=== PATIENT | male | born 1985 | race African-American/Black ===

== ENCOUNTER 2021-08-15 20:39 | Inpatient (IN) | payer OTHER, SELFPAY ==
[2021-08-15 20:40] VITALS: BP 142/84; PULSE 137; RESP 14; TEMP 39.6; O2SAT 97; BMI 20.7
--- NOTE | 2021-08-15 20:48 | CT_ITS ---
STUDY: CT BRAIN WITHOUT CONTRAST REASON FOR EXAM: Male, 36 years old. seizure RADIATION DOSAGE (If Supplied By Facility): CTDIvol = ( 44.99 ) mGy, DLP = ( 849.54 ) mGycm TECHNIQUE: Transaxial CT imaging of the brain was performed without administration of intravenous contrast material. Individualized dose optimization techniques were used for this CT. COMPARISON: No relevant priors. FINDINGS: Normal soft tissue structures. Normal calvarium. Air-fluid level left maxillary sinus. Normal size ventricles and extra-axial spaces for the patient''s age. Normal white matter tracts of the cerebral hemispheres. Normal basal ganglia and thalami. Normal brainstem. Normal cerebellum. There is no intracranial hemorrhage. There are no findings of an acute ischemic infarction. IMPRESSION: Left maxillary sinusitis otherwise Normal unenhanced CT scan of the brain. Electronically Signed: Maverick Rush MD at 22:25 EST , Service support , CT/Brain/Head without Contrast
--- NOTE | 2021-08-15 20:48 | RAD_ITS ---
STUDY: X-RAY CHEST REASON FOR EXAM: Male, 36 years old. cough TECHNIQUE: Single frontal view of the chest. COMPARISON: None. FINDINGS: Infrahilar infiltrate on the right. There is no demonstrated pleural abnormality. Normal size heart. Normal mediastinum and corby. Normal visualized pulmonary arteries. Normal visualized aortic arch and descending thoracic aorta. Normal visualized thoracic spine. Normal visualized ribs, clavicles, and shoulders. There is no demonstrated abnormality of the visualized soft tissue structures of the upper abdomen. RAD/Chest 1 View (Portable) IMPRESSION: Right lower lobe infiltrate Electronically Signed: Maverick Rush MD at 23:48 EST , Service support ,
--- NOTE | 2021-08-15 20:51 | EX.ED.DYSGE1 ---
HPI History of Present Illness Chief Complaint: Seizure Informant: patient and EMS Onset/Context/Timing Onset: Today Narrative Narrative: Patient brought in by EMS secondary to seizure. Patient states that he tested positive for Covid 2 weeks ago. He was only tested because he was exposed to a coworker with the illness. He has had no symptoms the last 2 weeks. Tonight he was outside working on his home when he started to feel ill. He developed a fever and went inside and laid down. He states the next thing he knew the squad was there picking him up stating that he had a seizure. Patient complains of generalized body aches and headache at this time. Only medication is Lexapro. Patient states his dose did increase from 10 mg to 20 mg about 2 weeks ago. [facility] Medical History Depression Home Medications escitalopram oxalate [Lexapro] 20 mg PO DAILY 08/15/21 [History Last Taken Unknown] Allergy/AdvReac Type Severity Reaction Status Date / Time No Known Allergies Allergy Verified 08/15/21 20:44 Social History Smoking Status: Current every day smoker tobacco type: cigarettes ROS ROS ED Constitutional Constitutional ED: Reports chills and fever(s) Eyes Eyes: Denies change in vision ENT ENT ED: Denies sore throat Cardiovascular Cardiovascular: Denies chest pain Respiratory/Chest Respiratory/Chest: Denies cough or dyspnea Gastrointestinal Gastrointestinal: Denies abdominal pain, diarrhea, nausea or vomiting Genitourinary Genitourinary ED: Denies dysuria Musculoskeletal Musculoskeletal: Reports myalgias; Denies back pain Integumentary Denies rash Neurologic Neurologic: Reports headache(s); Denies weakness Allergic/Immunologic Allergic/Immunologic ED: Denies urticaria EXAM Physical Exam Const Vital Signs: 08/15/21 20:40 08/15/21 21:40 08/15/21 22:40 Temperature 103.2 F H 102.8 F H 103 F H Temperature Source Oral Oral Oral Pulse Rate 137 H 116 H 112 H Respiratory Rate 14 16 16 Blood Pressure 142/84 H 116/61 101/57 L Blood Pressure Mean 103 79 71 Pulse Ox 97 94 91 Oxygen Delivery Method Room Air Room Air Room Air Positive well nourished and well developed General Appearance ED: well developed HEENT Reports moist mucous membranes Eyes PERRL and EOMs intact bilaterally Neck supple Neck Narrative: No meningismus. Chest Wall inspection of chest normal and palpation of chest normal Resp normal respiratory effort and clear to auscultation bilaterally Cardio Rate: tachycardic GI non-tender Palpation: soft Extremity normal to inspection Neuro oriented x3 Neuro Narrative: No focal neurologic deficits. Sensorium / Orientation: alert Psych mental status grossly normal Skin no rashes or lesions noted MDM MDM MDM Narrative Medical decision making narrative: Lab work, head CT, Covid test obtained. Patient given Tylenol for fever along with Zofran for nausea. Lab Data Attestation: I reviewed the patient's lab results. Labs: Laboratory Results - last 24 hr 08/15/21 08/15/21 08/15/21 20:50 20:50 21:00 WBC 15.0 H RBC 4.59 L Hgb 14.5 Hct 43.5 MCV 94.8 H MCH 31.6 MCHC 33.3 RDW Std Deviation 44.7 H RDW Coeff of Chandler 13.1 Plt Count 253 MPV 10.7 Immature Gran % (Auto) 0.600 Neut % (Auto) 85.5 H Lymph % (Auto) 7.5 L [place] % (Auto) 5.6 Eos % (Auto) 0.6 Baso % (Auto) 0.2 Absolute Neuts (auto) 12.9 H Absolute Lymphs (auto) 1.12 Nucleated RBC % 0 Sodium Cancelled Potassium Cancelled Chloride Cancelled Carbon Dioxide Cancelled Anion Gap Cancelled BUN Cancelled Creatinine Cancelled Estim Creat Clear Calc Cancelled Est GFR (MDRD) Af Amer Cancelled Est GFR (MDRD) Non-Af Cancelled BUN/Creatinine Ratio Cancelled Glucose Cancelled Lactic Acid 1.8 Calcium Cancelled Total Bilirubin Cancelled Direct Bilirubin Cancelled AST Cancelled ALT Cancelled Alkaline Phosphatase Cancelled Total Protein Cancelled Albumin Cancelled Globulin Cancelled 08/15/21 21:52 WBC RBC Hgb Hct MCV MCH MCHC RDW Std Deviation RDW Coeff of Chandler Plt Count MPV Immature Gran % (Auto) Neut % (Auto) Lymph % (Auto) [place] % (Auto) Eos % (Auto) Baso % (Auto) Absolute Neuts (auto) Absolute Lymphs (auto) Nucleated RBC % Sodium 142 Potassium 3.2 L Chloride 110 H Carbon Dioxide 26.0 Anion Gap 6 BUN 11 Creatinine 0.94 Estim Creat Clear Calc 102.90 Est GFR (MDRD) Af Amer 118 Est GFR (MDRD) Non-Af 97 BUN/Creatinine Ratio 11.7 Glucose 102 Lactic Acid Calcium 8.5 Total Bilirubin 0.20 Direct Bilirubin 0.10 AST 27 ALT 29 Alkaline Phosphatase 91 Total Protein 7.0 Albumin 3.6 Globulin 3.4 Radiography Diagnostic Testing: Clinical Impression(s) from Imaging Studies Brain CT 08/15/21 20:48 IMPRESSION: Left maxillary sinusitis otherwise Normal unenhanced CT scan of the brain. Treatment and Re-Evaluation Comments:: Rapid Covid test negative. Covid PCR sent. After Tylenol patient's fever remains at 102.8. He is given ibuprofen. Nursing staff states patient was complaining of some shortness of breath. His O2 sat was 91 to 92%. He was put on oxygen for comfort. On repeat evaluation at this time he is in no acute distress. He has no meningismus. He does report mild improvement in his headache but still complains of body aches. I did review the EMS note. They report noticing 2 episodes of convulsions on scene. First set of vital signs obtained at 20:26 included a GCS score of 7. Next check his GCS was 15. They documented the patient became alert and started speaking as they were moving him onto the cot. At this time I will speak with hospitalist regarding observation overnight. He will need temperature control wean from oxygen, and probable SOC consult tomorrow. Discharge Plan Triage Chief Complaint: Seizure ED Provider: Henna Herrera Dx/Rx/DC Orders Clinical Impression: Seizure, Fever Prescriptions: No Action escitalopram oxalate [Lexapro] 20 mg Tablet 20 mg PO DAILY RF: 0 Primary Care Provider: Care Physician,No Primary Referrals: Care Physician,No Primary [Primary Care Provider] - Disposition Disposition: [facility]
[2021-08-15 21:00] LABS: Absolute Lymphocyte Count 1.12 X10^3/uL (0.83-4.51); Absolute Neutrophil Count 12.9 X10^3/uL (2.0-7.7); Basophil# 0.03 X10^3/uL; Basophil% 0.2 % (0-1); Eosinophil# 0.09 X10^3/uL; Eosinophils% 0.6 % (0-5); Hematocrit 43.5 % (40-54); Hemoglobin 14.5 g/dL (13.0-16.5); Lymphocyte # 1.12 X10^3/ul (0.83-4.51); Lymphocyte % 7.5 % (19-41); Mean Corp Hgb Conc 33.3 g/dL (32-36); Mean Corpuscular Hgb 31.6 pg (27.0-32.0); Mean Corpuscular Volume 94.8 fL (80-94); Mean Platelet Vol. 10.7 fl (6.2-12.0); Monocyte# 0.84 X10^3/uL; Monocyte% 5.6 % (0-10); NRBC Flagged by Analyzer 0 % (0-5); Neutrophil # 12.85 X10^3/uL (2.7-7.7); Neutrophil % 85.5 % (47-70); Platelet Count 253 K/mm3 (150-450); RBC Distribution Width CV 13.1 % (11.6-14.6); RBC Distribution Width SD 44.7 fl (35.1-43.9); Red Blood Count 4.59 M/mm3 (4.6-6.2)
[2021-08-15 21:36] LABS: Lactic Acid 1.8 mmol/L (0.4-1.9)
[2021-08-15 21:40] VITALS: BP 116/61; PULSE 116; RESP 16; TEMP 39.3; O2SAT 94
[2021-08-15] MEDS: Ondansetron 4 MG/2 ML Vial IV (21:48)
[2021-08-15] MEDS: Acetaminophen 500 MG Tablet 1000 MG PO (21:50)
[2021-08-15 22:21] LABS: AST(SGOT) 27 U/L (15-37); Alanine Aminotransfer ALT/SGPT 29 U/L (16-61); Albumin, Serum 3.6 g/dL (3.2-5.0); Alkaline Phosphatase 91 U/L (45-117); Anion Gap 6 (5-15); BUN 11 mg/dL (7-18); BUN/Creat Ratio 11.7 RATIO (10-20); Calcium,Total 8.5 mg/dL (8.5-10.1); Chloride 110 mmol/L (98-107); Creatinine, Serum 0.94 mg/dL (0.70-1.30); EST Glomerular Filtration Rate 97 mL/min (>60); Est Glom Filt Rate - Afr Amer 118 mL/min (>60); Globulin 3.4 g/dL (2.2-4.2); Glucose 102 mg/dL (74-106); Potassium 3.2 mmol/L (3.5-5.1); Sodium Level 142 mmol/L (136-145)
[2021-08-15 22:40] VITALS: BP 101/57; PULSE 112; RESP 16; TEMP 39.4; O2SAT 91
[2021-08-15] MEDS: Ibuprofen 600 MG Tablet PO (23:20)
[2021-08-15 23:40] VITALS: BP 117/71; PULSE 106; RESP 18; TEMP 38.4; O2SAT 96
[2021-08-16] VITALS (11 sets, daily range): BP systolic 106–149; BP diastolic 63–88; PULSE 70–106; RESP 16–19; TEMP 36.6–38.4; O2SAT 96–99; BMI 19.5
--- NOTE | 2021-08-16 00:19 | NURSING ---
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
--- NOTE | 2021-08-16 00:40 | HP.PCM_ITS ---
HPI - General HPI Narrative TIMMY BOB, is a 36 M who presents to the emergency room after experiencing a seizure at home. Patient has significant past medical history of testing positive for COVID-19 virus 2 weeks ago after being exposed by a coworker. Patient did not have any symptoms of Covid including shortness of breath for the past 2 weeks until now. He has developed a fever this evening and states he was outside working on something when he felt sick and became nauseous and went inside to lay down and that the last thing he remembers prior to having a seizure for which she was transported to the hospital. Further history reveals patient is a [employer] who was discharged in 2011, is with his significant other and has 5 children under the age of 8 and according to his spouse has been working very hard on the house recently. He has a history of heavy alcohol consumption since discharge from the [facility] but states he has recently been trying to reduce his consumption and thinks he did not drink any at all yes terday and had 2 tall boys today. [facility] and was placed on Lexapro 2 months ago and was increased to a dose of 20 mg 2 weeks ago. He has no prior history of seizure disorder or head trauma. Patient will be admitted for observation to progressive care unit. [facility] Medical History (Updated 08/16/21 @ 00:[address] Delonte Lehman MD) Depression Home Medications escitalopram oxalate [Lexapro] 20 mg PO DAILY 08/15/21 [History Last Taken Unknown] Allergy/AdvReac Type Severity Reaction Status Date / Time No Known Allergies Allergy Verified 08/15/21 20:44 Social History Smoking Status: Current every day smoker tobacco type: cigarettes ROS Constitutional Constitutional: Reports chills and fever(s) Eyes Eyes: Reports blurry vision ENT HEENT: Denies abnormal hearing Cardiovascular Cardiovascular: Denies chest pain Respiratory/Chest Respiratory/Chest: Denies cough or shortness of breath at rest Gastrointestinal Gastrointestinal: Denies abdominal pain Genitourinary Genitourinary: Denies dysuria Musculoskeletal Musculoskeletal: Reports stiffness Integumentary Integumentary: Denies dry skin Neurologic Neurologic: Denies abnormal gait or abnormal speech Psychiatric Psychiatric: Denies anxiety Vital Signs Vital Signs Vital Signs: 08/15/21 20:40 08/15/21 21:40 08/15/21 22:40 Temperature 103.2 F H 102.8 F H 103 F H Temperature Source Oral Oral Oral Pulse Rate 137 H 116 H 112 H Respiratory Rate 14 16 16 Blood Pressure 142/84 H 116/61 101/57 L Blood Pressure Mean 103 79 71 Pulse Ox 97 94 91 Oxygen Delivery Method Room Air Room Air Room Air Oxygen Flow Rate (L/min) 08/15/21 23:40 08/16/21 00:07 Temperature 101.2 F H 101.2 F H Temperature Source Oral Oral Pulse Rate 106 H 106 H Respiratory Rate 18 18 Blood Pressure 117/71 117/71 Blood Pressure Mean 86 86 Pulse Ox 96 96 Oxygen Delivery Method Nasal Cannula Nasal Cannula Oxygen Flow Rate (L/min) 2 2 Weight Weight: 144 lb 13.499 oz Body Mass Index (BMI) 20.7 Physical Exam Const alert, oriented x3 and no apparent distress General Appearance: cooperative HEENT normocephalic and head/scalp atraumatic Eyes PERRL and EOMs intact bilaterally Neck supple Lymph Lymphatic: no lymphadenopathy noted Resp normal respiratory effort, normal air movement and clear to auscultation bilaterally Cardio regular rate, regular rhythm, S1 normal heart sound and S2 normal heart sound GI normal to inspection, nondistended, normoactive bowel sounds Extremity no clubbing, cyanosis or edema Skin General Skin Exam: turgor normal Neuro CN's II-XII intact bilaterally Psych thought process normal, cooperative and affect normal Appearance: appropriate Results Lab / Micro Data Result Diagrams: 08/15/21 20:50 08/15/21 21:52 Labs: Laboratory Results - last 24 hr 08/15/21 20:50: WBC 15.0 H, RBC 4.59 L, Hgb 14.5, Hct 43.5, MCV 94.8 H, MCH 31.6, MCHC 33.3, RDW Std Deviation 44.7 H, RDW Coeff of Chandler 13.1, Plt Count 253, MPV 10.7, Immature Gran % (Auto) 0.600, Neut % (Auto) 85.5 H, Lymph % (Auto) 7.5 L, [place] % (Auto) 5.6, Eos % (Auto) 0.6, Baso % (Auto) 0.2, Absolute Neuts (auto) 12.9 H, Absolute Lymphs (auto) 1.12, Nucleated RBC % 0 08/15/21 20:50: Sodium Cancelled, Potassium Cancelled, Chloride Cancelled, Carbon Dioxide Cancelled, Anion Gap Cancelled, BUN Cancelled, Creatinine Cancelled, Estim Creat Clear Calc Cancelled, Est GFR (MDRD) Af Amer Cancelled, Est GFR (MDRD) Non-Af Cancelled, BUN/Creatinine Ratio Cancelled, Glucose Cancelled, Calcium Cancelled, Total Bilirubin Cancelled, Direct Bilirubin Cancelled, AST Cancelled, ALT Cancelled, Alkaline Phosphatase Cancelled, Total Protein Cancelled, Albumin Cancelled, Globulin Cancelled 08/15/21 21:00: Lactic Acid 1.8 08/15/21 21:52: Sodium 142, Potassium 3.2 L, Chloride 110 H, Carbon Dioxide 26.0, Anion Gap 6, BUN 11, Creatinine 0.94, Estim Creat Clear Calc 102.90, Est GFR (MDRD) Af Amer 118, Est GFR (MDRD) Non-Af 97, BUN/Creatinine Ratio 11.7, Glucose 102, Calcium 8.5, Total Bilirubin 0.20, Direct Bilirubin 0.10, AST 27, ALT 29, Alkaline Phosphatase 91, Total Protein 7.0, Albumin 3.6, Globulin 3.4 Micro: Microbiology 08/15/21 20:52 Nasal Secretion SARS-CoV-2 Antigen (Rapid) - Final Radiology Impression Brain CT 08/15/21 20:48 Chest X-Ray 08/15/21 20:48 IMPRESSION: Right lower lobe infiltrate Electronically Signed: Maverick Rush MD at 23:48 EST , Service support , Assessment & Plan Assessment/Plan (1) Seizure: (2) Fever: (3) COVID: (4) Depression: PLAN: 1. New onset seizure possibly secondary to recent COVID-19 infection, alcohol cessation or change in depression medication?admit patient for observation to progressive care unit, neuro checks every 4 hours 2. COVID-19 virus infection?patient tested +2 weeks ago however does currently have a fever and will be placed in isolation for that reason, patient denies shortness of breath at this time and will monitor and use oxygen as needed 3. Depression?continue Lexapro per routine 4. DVT prophylaxis?SCDs as patient will most likely be ambulatory 5. History of alcohol consumption we will add thiamine and folic acid consider Ativan as needed if patient shows any agitation Charges/Coding Visit Charges OBSV E&M: 21917 Initial observation care L2
[2021-08-16] MEDS: Potassium Chloride Oral Tablet 20 MEQ 40 MEQ PO (01:05)
--- NOTE | 2021-08-16 02:33 | PCS.PANDOC ---
PANDEMIC DOCUMENTATION INITIATED: Date: 04/04/2021 Time: 190
[2021-08-16 08:04] LABS: Basophil# 0.07 X10^3/uL; Basophil% 0.3 % (0-1); Eosinophil# 0.06 X10^3/uL; Eosinophils% 0.2 % (0-5); Hematocrit 39.8 % (40-54); Hemoglobin 13.7 g/dL (13.0-16.5); Lymphocyte % 5.9 % (19-41); Mean Corp Hgb Conc 34.4 g/dL (32-36); Mean Platelet Vol. 10.3 fl (6.2-12.0); Monocyte# 2.49 X10^3/uL; Monocyte% 9.8 % (0-10); NRBC Flagged by Analyzer 0 % (0-5); Neutrophil % 82.9 % (47-70); POSITIVE DIFFERENTIAL YES; POSITIVE MORPHOLOGY YES; Platelet Count 220 K/mm3 (150-450); RBC Distribution Width CV 12.9 % (11.6-14.6); RBC Distribution Width SD 43.8 fl (35.1-43.9); Red Blood Count 4.28 M/mm3 (4.6-6.2); White Blood Count 25.4 K/mm3 (4.4-11.0)
[2021-08-16 08:07] LABS: Differential Indicated SCAN CRITERIA MET
[2021-08-16] MEDS: Thiamine Hydrochloride 100 MG Tablet PO (08:32)
[2021-08-16] MEDS: Escitalopram Oxalate 20 MG Tablet PO (08:32)
[2021-08-16] MEDS: Folic Acid 1 MG Tablet PO (08:32)
[2021-08-16 08:34] LABS: Anion Gap 4 (5-15); BUN 15 mg/dL (7-18); BUN/Creat Ratio 16.3 RATIO (10-20); Calcium,Total 8.8 mg/dL (8.5-10.1); Chloride 111 mmol/L (98-107); Creatinine, Serum 0.92 mg/dL (0.70-1.30); EST Glomerular Filtration Rate 100 mL/min (>60); Est Glom Filt Rate - Afr Amer 120 mL/min (>60); Estimated Creatinine Clearance 98.57 ml/min; Glucose 126 mg/dL (74-106); Potassium 4.1 mmol/L (3.5-5.1); Sodium Level 142 mmol/L (136-145)
[2021-08-16 08:38] LABS: Differential Comment SCANNED
--- NOTE | 2021-08-16 08:40 | TELEMED_ITS ---
SOC Telemed has confirmed receipt of a request for visit. This document confirms receipt of the order initiating the consult. To find the results of the consultation, please view the patient's reports for the scanned Telemed Consult.
--- NOTE | 2021-08-16 09:52 | PN.HOSP_ITS ---
Subjective Subjective Patient seen and examined. He was admitted with a complaint of seizures. He tested positive for covid about a week ago, but repeat test during this admission was negative-PCR. He was admitted to be managed for new onset seizure disorder. Patient has no complaints this morning. He was noted to have a high grade fever last night, with temperature peaking at 103F. He was also tachycardic then, but that has resolved this morning. Fever has also resolved this morning. His wbc was 15 on admission, and is now up to 25.4. He denies any neck pain, any recent travels or surgeries, and denies any IV drug use. Objective Data Objective Data Vital Signs: Vital Signs Temp Pulse Resp BP Pulse Ox 98.6 F 73 19 H 106/63 99 08/16/21 08:15 08/16/21 08:15 08/16/21 08:15 08/16/21 08:15 08/16/21 08:15 Oxygen Flow Rate (L/min) 2 Oxygen Delivery Method Room Air Weight: 135 lb 12.876 oz Body Mass Index (BMI) 19.5 Intake & Output: Intake and Output for Last 24 Hours 08/14/21 08/15/21 08/16/21 23:59 23:59 23:59 Intake Total 500 / 500 Balance 500 / 500 Lab / Micro Data Result Diagrams: 08/16/21 07:33 08/16/21 07:48 Labs: Laboratory Results - last 24 hr 08/15/21 20:50: WBC 15.0 H, RBC 4.59 L, Hgb 14.5, Hct 43.5, MCV 94.8 H, MCH 31.6 , MCHC 33.3, RDW Std Deviation 44.7 H, RDW Coeff of Chandler 13.1, Plt Count 253, MPV 10.7, Immature Gran % (Auto) 0.600, Neut % (Auto) 85.5 H, Lymph % (Auto) 7.5 L, [place] % (Auto) 5.6, Eos % (Auto) 0.6, Baso % (Auto) 0.2, Absolute Neuts (auto) 12.9 H, Absolute Lymphs (auto) 1.12, Nucleated RBC % 0 08/15/21 20:50: Sodium Cancelled, Potassium Cancelled, Chloride Cancelled, Carbon Dioxide Cancelled, Anion Gap Cancelled, BUN Cancelled, Creatinine Cancelled, Estim Creat Clear Calc Cancelled, Est GFR (MDRD) Af Amer Cancelled, Est GFR (MDRD) Non-Af Cancelled, BUN/Creatinine Ratio Cancelled, Glucose Cancelled, Calcium Cancelled, Total Bilirubin Cancelled, Direct Bilirubin Cancelled, AST Cancelled, ALT Cancelled, Alkaline Phosphatase Cancelled, Total Protein Cancelled, Albumin Cancelled, Globulin Cancelled 08/15/21 21:00: Lactic Acid 1.8 08/15/21 21:52: Sodium 142, Potassium 3.2 L, Chloride 110 H, Carbon Dioxide 26.0, Anion Gap 6, BUN 11, Creatinine 0.94, Estim Creat Clear Calc 102.90, Est GFR (MDRD) Af Amer 118, Est GFR (MDRD) Non-Af 97, BUN/Creatinine Ratio 11.7, Glucose 102, Calcium 8.5, Total Bilirubin 0.20, Direct Bilirubin 0.10, AST 27, ALT 29, Alkaline Phosphatase 91, Total Protein 7.0, Albumin 3.6, Globulin 3.4 08/15/21 21:52: Folate 12.80 08/15/21 21:55: COVID-19 (LUNA) Not Detected 08/16/21 07:33: WBC 25.4 H, RBC 4.28 L, Hgb 13.7, Hct 39.8 L, MCV 93.0, MCH 32.0, MCHC 34.4, RDW Std Deviation 43.8, RDW Coeff of Chandler 12.9, Plt Count 220, MPV 10.3, Immature Gran % (Auto) 0.900, Neut % (Auto) 82.9 H, Lymph % (Auto) 5.9 L, [place] % (Auto) 9.8, Eos % (Auto) 0.2, Baso % (Auto) 0.3, Absolute Neuts (auto) 21.0 H, Absolute Lymphs (auto) 1.50, Nucleated RBC % 0, Differential Comment SCANNED, Diff Path Review December08/16/21 07:48: Sodium 142, Potassium 4.1, Chloride 111 H, Carbon Dioxide 27.0, Anion Gap 4 L, BUN 15, Creatinine 0.92, Estim Creat Clear Calc 98.57, Est GFR (MDRD) Af Amer 120, Est GFR (MDRD) Non-Af 100, BUN/Creatinine Ratio 16.3, Glucose 126 H, Calcium 8.8, Magnesium 2.0 Micro: Microbiology 08/15/21 20:52 Nasal Secretion SARS-CoV-2 Antigen (Rapid) - Final Radiography Diagnostic Testing: Radiology Impression Brain CT 08/15/21 20:48 Chest X-Ray 08/15/21 20:48 IMPRESSION: Right lower lobe infiltrate Electronically Signed: Maverick Rush MD at 23:48 EST , Service support , Physical Exam Const alert, oriented x3 and no apparent distress Exam Limitations: no limitations HEENT head/scalp atraumatic, moist oral mucous membranes and oropharynx normal Head and Scalp: normocephalic Eyes PERRL, EOMs intact bilaterally and conjunctivae normal Neck no lymphadenopathy and supple Neck Narrative: Kerrnig's sign is negative. Resp normal respiratory effort, no retractions, no use of accessory muscles and clear to auscultation bilaterally Cardio regular rate, regular rhythm, S1 normal heart sound, S2 normal heart sound and no murmurs GI normal to inspection, nondistended, normoactive bowel sounds, soft to palpation, non-tender and non-distended Extremity normal to inspection, full ROM and no clubbing, cyanosis or edema Peripheral Pulses: Yes pulses 2+ throughout Skin no rashes or lesions noted Neuro oriented x3, CN's II-XII intact bilaterally, moves all extremities, no focal motor deficits and no sensory deficits noted Sensorium / Orientation: awake and alert Motor Exam: strength 5/5 throughout Psych affect normal Assessment & Plan Assessment/Plan (1) Seizure: PLAN: #New onset seizure, suspect infectious etiology * patient had associated fever with a new onset seizure. Fever has now resolved though. * I am worried about a possible infectious etiology, and I think it is prudent t o consider getting a lumbar puncture * wbc is markedly elevated to 25 today. * seizure precautions. Fall precautions * neurology consulted; await rec's. WIll also consult infectious disease * will hold off on LP until neurology reviews patient as fever has now resolved. * He also has a history of alcohol dependence, and says he is trying to cut down now, so this may also be due to possible alcohol withdrawal seizure. * #Depression: on lexapro #COVID 19 infection * he tested positive ~ 9 days ago, but repeat testing here, both PCR and antigen tests, were negative. * will dc isolation. Patient currently on room air. * #PRobable aspiration pneumonia * CXR showed a right lower lobe infiltrate; in light of his having had a seizure, he could have possibly aspirated. * will start on IV antibiotics for possible aspiration pneumonia * wbc is up to 25 today. * get blood cultures also * #History of alcohol use disorder * on thiamine, folic acid and multivite. * not in withdrawal. Will monitor * DVT prophylaxis: lovenox Charges/Coding Visit Charges OBSV E&M: 04359 Subsequent observation care L3
[2021-08-16] MEDS: metroNIDAZOLE 500 MG/100 ML BAG 100 MG IV ×2 (14:54→21:02)
--- NOTE | 2021-08-16 16:10 | MRI_ITS ---
EXAM: MR Head Without and With Intravenous Contrast CLINICAL INDICATION: 36 years old, Male; seizure-new onset TECHNIQUE: Multiplanar and multisequence MR images of the brain were obtained without and with intravenous contrast. This report was created using [employer] report [employer] technology. CONTRAST: IV 12ML dOTAREM COMPARISON: None. FINDINGS: Brain and extra-axial spaces: Unremarkable. No intra- or extra-axial hemorrhage. No intracranial mass or mass effect. Posterior fossa structures are unremarkable. Ventricles are appropriate for age. No hydrocephalus. Basal cisterns are patent. Diffusion-weighted imaging is negative for acute or subacute infarct. Sella: Unremarkable. Normal sella turcica, pituitary gland, infundibular stalk, optic chiasm and hypothalamus. Auditory system: Unremarkable. The internal auditory canals are patent. Bones/joints: Unremarkable. No discrete lytic or blastic abnormalities. Sinuses: Unremarkable as visualized. Clear. Mastoid air cells: Unremarkable as visualized. Clear. Orbits: Unremarkable as visualized. Both globes, extraocular muscles, optic nerves and retrobulbar fat appear unremarkable. Vasculature: Unremarkable as visualized. Normal flow voids in the major intracranial circulation. MRI/Brain W/WO Contrast IMPRESSION: No evidence of acute or subacute infarct. No abnormal findings. Electronically Signed: Caden Campbell MD at 7:54 EST Tel , Service support ,
--- NOTE | 2021-08-16 16:37 | CASEMGMT ---
Social Work SW met with pt and discussed alcohol use. Pt states he is currently drinking a 6 pack of beer about 3 times a week. Pt admits to drinking much more in the past but has been able to reduce to this amount. Pt states [facility] this [facility]. SW provided written addiction treatment information and pt was accepting. Pt denies any further needs at this time. CHARLIE Willoughby
[2021-08-17 02:40] VITALS: BP 120/76; PULSE 76; RESP 16; TEMP 37.1; O2SAT 98
[2021-08-17 03:01] VITALS: PULSE 73
[2021-08-17] MEDS: 0.9% Saline Lock 10 ML Syringe IV (05:23)
[2021-08-17] MEDS: metroNIDAZOLE 500 MG/100 ML BAG 100 MG IV ×2 (05:24→13:57)
[2021-08-17 05:57] LABS: Absolute Lymphocyte Count 1.64 X10^3/uL (0.83-4.51); Basophil# 0.04 X10^3/uL; Basophil% 0.2 % (0-1); Eosinophil# 0.32 X10^3/uL; Eosinophils% 1.8 % (0-5); Hemoglobin 13.6 g/dL (13.0-16.5); Lymphocyte # 1.64 X10^3/ul (0.83-4.51); Lymphocyte % 9.1 % (19-41); Mean Corp Hgb Conc 33.2 g/dL (32-36); Mean Corpuscular Hgb 31.2 pg (27.0-32.0); Mean Platelet Vol. 10.8 fl (6.2-12.0); Monocyte# 1.97 X10^3/uL; Monocyte% 10.9 % (0-10); NRBC Flagged by Analyzer 0 % (0-5); Neutrophil # 13.97 X10^3/uL (2.7-7.7); Neutrophil % 77.2 % (47-70); POSITIVE DIFFERENTIAL YES; Platelet Count 222 K/mm3 (150-450); RBC Distribution Width CV 12.9 % (11.6-14.6); RBC Distribution Width SD 44.7 fl (35.1-43.9); Red Blood Count 4.36 M/mm3 (4.6-6.2); White Blood Count 18.1 K/mm3 (4.4-11.0)
[2021-08-17 06:16] LABS: Differential Indicated SCAN CRITERIA MET
[2021-08-17 06:31] LABS: Anion Gap 4 (5-15); BUN 13 mg/dL (7-18); BUN/Creat Ratio 17.1 RATIO (10-20); Calcium,Total 8.7 mg/dL (8.5-10.1); Chloride 110 mmol/L (98-107); Creatinine, Serum 0.76 mg/dL (0.70-1.30); EST Glomerular Filtration Rate 125 mL/min (>60); Est Glom Filt Rate - Afr Amer 151 mL/min (>60); Estimated Creatinine Clearance 119.33 ml/min; Glucose 137 mg/dL (74-106); Potassium 3.9 mmol/L (3.5-5.1); Sodium Level 141 mmol/L (136-145)
[2021-08-17 07:00] VITALS: PULSE 63
[2021-08-17 08:40] VITALS: BP 131/76; PULSE 84; RESP 18; TEMP 36.8; O2SAT 98
[2021-08-17] MEDS: Folic Acid 1 MG Tablet PO (09:03)
[2021-08-17] MEDS: Escitalopram Oxalate 20 MG Tablet PO (09:04)
[2021-08-17] MEDS: Ceftriaxone 1 GM/50 ML BAG IV (09:04)
[2021-08-17] MEDS: Thiamine Hydrochloride 100 MG Tablet PO (09:04)
--- NOTE | 2021-08-17 09:50 | CASEMGMT ---
JAZMINE MATTHEWS Assessment: Face to Face with patient for initial transition planning/care coordination assessment. Patient supine in bed, alert and oriented, in no apparent distress. CCM introduced self and role at [facility]. Care providers, pharmacy, and demographics verified. PCP: None. [facility] Provider Directory provided to patient. Specialists: Psychiatrist at [facility] (unsure of name) Preferred Pharmacy: [facility] Insurance: [place] Prescription Benefit: yes Living Will/HPOA: Patient does not have LW/HPOA. LNOK: , Zakiya Blanco Living Arrangements: Patient lives with and five daughters in two story house with one step to enter the home. Patient independent with ADLs prior to hospitalization. Social: smokes 1/2 ppd, reports attempting to slow down on alcohol intake and currently drinking beer approximately 3 times a week, denies drug use Transportation: Patient drives self prior to hospitalization. available for transport needs if driving restricted. DME/HHC: Patient denies any DME in home. Denies previous HHC or SNF stays. Plan: maria teresa Holder RN CM
[2021-08-17 10:13] LABS: Pathologist Review Reviewed
--- NOTE | 2021-08-17 13:26 | DS.PCM_ITS ---
Providers Date of Admission: 08/16/21 Primary Care Physician: Anuja Primary Care Phys Consultations 08/16/21 10:10 Consult: Infectious Disease Routine Consulting Provider: Manuel Perez Reason for Consult: fever, new onset seizures EMERGENT Consult: No MD Notified: Yes Date Notified: 08/16/21 Time Notified: 10:11 Method of Notification: Verbal Reason For Visit: seizure Diagnosis Discharge Diagnosis (1) Seizure: Status: Acute Code(s): R56.9 - Unspecified convulsions Medications at Discharge Home Medications escitalopram oxalate [Lexapro] 20 mg PO DAILY 08/15/21 amoxicillin-pot clavulanate 1 tab PO BID #14 tab 08/17/21 Hospital Course Operations None Procedures Electroencephalogram Summary of Care Provided Minutes Spent on Discharge: 45 Hospital Course: Patient is a 36-year-old male with a significant history of depression. He was admitted through the ED on 08/15/2021 with a complaint of seizure. Patient had tested positive for COVID-19 2 weeks prior to admission and had been asymptomatic. On admission he tested negative for Covid. Patient developed a fever and subsequently felt sick and nauseous. He had a generalized tonic-clonic seizure which was witnessed by his . Patient had a history of heavy alcohol use as well but said he has been trying to cut down. On admission he was found to have an elevated white cell count. CT of the brain was negative for any intracranial pathology and chest x-ray showed right lower lobe infiltrate. He was admitted to be managed for new onset seizure. Neurology was consulted. Patient had an MRI and CT of the brain which were both normal and he had an EEG which was also normal. Neurology reviewed him and felt he did not need to start on antiseizure medication in light of this being only one episode of seizure. In light of patient's elevated white cell count and chest x-ray finding, there was concern about possible aspiration pneumonia during seizure. He was therefore started on IV ceftriaxone and Flagyl. Patient felt much better and remained asymptomatic. He was discharged home on 08/17/2021 and is follow-up with his primary care doctor in 1 to 2 weeks. He was also referred to neurology on outpatient basis and counseled to cut back and possibly stop drinking alcohol also could precipitate a seizure. Neurology was consulted to decide about whether patient could drive. As at time patient was leaving, neurology hadnt gotten back to us, adn pateint was not willing to wait any further. Patient was therefore counseled to follow-up with neurology on outpatient basis and not to drive until he sees neurology on outpatient basis. Patient was seen and examined prior to discharge. He had no active complaint and review of systems otherwise negative. Labs and vitals reviewed. Medication reviewed and reconciled. Physical Exam Const alert, oriented x3 and no apparent distress General Appearance: cooperative Exam Limitations: no limitations HEENT normocephalic, head/scalp atraumatic, moist oral mucous membranes and oropharynx normal Eyes PERRL, EOMs intact bilaterally and conjunctivae normal Neck no lymphadenopathy and supple Neck Narrative: Kerrnig's sign is negative. Lymph Lymphatic: no lymphadenopathy noted Resp normal respiratory effort, normal air movement, no retractions, no use of accessory muscles and clear to auscultation bilaterally Cardio regular rate, regular rhythm, S1 normal heart sound, S2 normal heart sound and no murmurs GI normal to inspection, nondistended, normoactive bowel sounds, soft to palpation, non-tender and non-distended Extremity normal to inspection, full ROM and no clubbing, cyanosis or edema Skin no rashes or lesions noted General Skin Exam: turgor normal Neuro oriented x3, CN's II-XII intact bilaterally, moves all extremities, no focal motor deficits and no sensory deficits noted Sensorium / Orientation: awake and alert Motor Exam: strength 5/5 throughout Psych thought process normal, cooperative and affect normal Appearance: appropriate Medical Records Data Medical Nutrition Assessment Dietitian: Malnutrition Criteria Met Start: 08/16/21 11:38 Freq: Status: Active Protocol: Document 08/16/21 11:38 (Rec: 08/16/21 11:38 [id number]) Nutrition Malnutrition Evidence of Malnutrition Exists Yes Malnutrition (severe): Acute Illness/Injury Evidenced By Suboptimal Energy Intake ( Severe),Weight Loss (Severe) Clinical Problem Acute Disease or Injury Related Malnutrition Etiology severe, acute malnutrition r/t inadequate energy intake w/ COVID illness Signs/Symptoms as evidenced by unintentional wt loss of 9.2#/6.3% wt loss, estimated PO intake meeting < 75% of estimated energy needs >2 weeks Status Active Problem Recommendation Dietitian Recommendations/Changes continue regular diet, ensure enlive 120mL 4x/day w/ medpass d/t acute malnutrition Weight / BMI Weight Weight: 135 lb 12.876 oz Body Mass Index (BMI) 19.5 ABG / Lab / Microbiology Data Result Diagrams: 08/17/21 05:15 08/17/21 05:15 Laboratory: Laboratory Results - last 24 hr 08/16/21 07:33: Diff Path Review Reviewed 08/17/21 05:15: WBC 18.1 H, RBC 4.36 L, Hgb 13.6, Hct 41.0, MCV 94.0, MCH 31.2, MCHC 33.2, RDW Std Deviation 44.7 H, RDW Coeff of [place] 12.9, Plt Count 222, MPV 10.8, Immature Gran % (Auto) 0.800, Neut % (Auto) 77.2 H, Lymph % (Auto) 9.1 L, [place] % (Auto) 10.9 H, Eos % (Auto) 1.8, Baso % (Auto) 0.2, Absolute Neuts (auto) 14.0 H, Absolute Lymphs (auto) 1.64, Nucleated RBC % 0, Diff Path Review May 08/17/21 05:15: Sodium 141, Potassium 3.9, Chloride 110 H, Carbon Dioxide 27.0, Anion Gap 4 L, BUN 13, Creatinine 0.76, Estim Creat Clear Calc 119.33, Est GFR (MDRD) Af Amer 151, Est GFR (MDRD) Non-Af 125, BUN/Creatinine Ratio 17.1, Glucose 137 H, Calcium 8.7 Microbiology: Microbiology 08/15/21 20:52 Nasal Secretion SARS-CoV-2 Antigen (Rapid) - Final Radiography Diagnostic Testing: Radiology Impression Brain MRI 08/16/21 16:10 IMPRESSION: No evidence of acute or subacute infarct. No abnormal findings. Electronically Signed: Caden Campbell MD at 7:54 EST Tel , Service support , D/C Instructions Discharge Diet: No restrictions Discharge Activity: Return to Normal Activity Weight Bearing Status: Weight bearing as tolerated Call your doctor if you observe: Fever of 101 or Higher, Shortness of breath, Swelling in the ankles and Increased palpitations (irregular heartbeat) Meaningful Use Info Meaningful Use Diagnoses (Choose all that apply): None applicable Discharge Plan Admission Admit Date/Time: 08/16/21 12:45 Primary Reason for Your Visit: seizure Attending Provider: Francisca Palacio Primary Care Provider: Care Physician,No Primary Consulting Providers: Manuel Perez Discharge Orders/Prescriptions Prescriptions: New amoxicillin-pot clavulanate 875-125 mg tablet 1 tab PO BID Qty: 14 RF: 0 Continued escitalopram oxalate [Lexapro] 20 mg Tablet 20 mg PO DAILY RF: 0 Referrals / Follow Up: Reji Guerrero MD [STAFF PHYSICIAN] - Within 2 Weeks Care Physician,No Primary [Primary Care Provider] - Disposition Disposition (needs filled in before D/C Order can be placed): Home, Self Care Charges/Coding Visit Charges Inpatient E&M: 41424 Disch Hosp
[2021-08-17 13:55] VITALS: BP 127/72; PULSE 64; RESP 17; TEMP 37; O2SAT 98
[2021-08-17 15:00] VITALS: PULSE 73
[2021-08-17 15:46] LABS: Pathologist Review Reviewed
== END 2021-08-17 16:34 | disposition home or self-care (01) | DRG 100 ==
LOC: ED 23:42 → MS3 08-16 00:52 → PCU 08-16 07:13
PROVIDERS: Admitting Provider Family Medicine; Emergency Provider Emergency Medicine; Visit Provider Student in an Organized Health Care Education/Training Program
DX: R56.9 Unspecified convulsions (principal); J69.0 Pneumonitis due to inhalation of food and vomit; Z86.16 Personal history of COVID-19; F32.A Depression, unspecified; Z79.899 Other long term (current) drug therapy; F17.210 Nicotine dependence, cigarettes, uncomplicated; F10.20 Alcohol dependence, uncomplicated; R50.9 Fever, unspecified
CPT/HCPCS: 36415; 70450; 70553; 71045; 80048; 80076; 82746; 83605; 83735; 85025; 87040; 87426; 87635; 95819; 97802; 99285; A9575; J7030; U0005; A4216; J2405; U0003

== ENCOUNTER 2022-01-25 00:24 | Emergency (ER) | payer OTHER, SELFPAY ==
[2022-01-25 00:25] VITALS: BP 143/93; PULSE 84; RESP 16; TEMP 36.3; O2SAT 99; BMI 22.6
--- NOTE | 2022-01-25 01:00 | RAD_ITS ---
EXAM: XR LEFT KNEE, 3 VIEWS CLINICAL INDICATION: pain TECHNIQUE: Three views of the left knee. This report was created using [facility] report generation technology. COMPARISON: None. FINDINGS: BONES/JOINTS: Minimal suprapatellar joint effusion is suspected. Slight narrowing of the medial joint compartment. No acute fracture. No subluxation. Normal alignment. No sclerotic or destructive changes observed. SOFT TISSUES: Mild soft tissue swelling anterior to the patella. No radiopaque foreign body. RAD/Knee 3 Views IMPRESSION: Small suspected suprapatellar joint effusion. Minimal narrowing of the medial knee joint compartment. Slightly irregular cortical margins of the distal femoral condyles on the lateral view, not obviously acute or due to osteochondritis dissecans. Electronically Signed: Dipti Cortez MD at 1:59 EDT ,
--- NOTE | 2022-01-25 01:12 | EDS_ITS ---
HPI History of Present Illness Chief Complaint: Lower Extremity Injury Narrative Narrative: Patient is a 36-year-old male who states he was heading out to feed his pigs this evening around midnight. He states he was carrying a 50 pound bag when he slipped in the mud and twisted his left knee. He states that he could not see because it was dark but he felt like his kneecap had shifted to the side and he instinctively reached out and pushed it back in place. He states he has had pain and swelling since that time and was concerned about underlying injury so therefore he presents for evaluation. He denies striking his head or any loss of consciousness or blood thinner use PFSH PFS Medical History Alcohol abuse Depression Seizure Seizures Smoker Home Medications escitalopram oxalate [Lexapro] 20 mg PO DAILY 08/15/21 [History Last Taken Unknown] Allergy/AdvReac Type Severity Reaction Status Date / Time No Known Allergies Allergy Verified 08/15/21 20:44 Social History Smoking Status: Current every day smoker tobacco type: cigarettes ROS ROS ED Constitutional Constitutional ED: Denies chills or fever(s) Eyes Eyes: Denies change in vision Cardiovascular Cardiovascular: Denies chest pain Respiratory/Chest Respiratory/Chest: Denies cough or dyspnea Gastrointestinal Gastrointestinal: Denies abdominal pain, diarrhea, nausea or vomiting Genitourinary Genitourinary ED: Denies dysuria Musculoskeletal Musculoskeletal: Reports arthralgias and other Details: Positive left knee pain ; Denies back pain, myalgias or neck pain Integumentary Denies Abrasions or rash Neurologic Neurologic: Denies headache(s) Hematologic/Lymphatic Hematologic/Lymphatic: Denies easy bleeding or easy bruising EXAM Physical Exam Const Vital Signs: 01/25/22 00:25 Temperature 97.3 F L Temperature Source Temporal Pulse Rate 84 Respiratory Rate 16 Blood Pressure 143/93 H Blood Pressure Mean 109 Pulse Ox 99 Oxygen Delivery Method Room Air Positive well nourished and well developed General Appearance ED: well developed HEENT HEENT Narrative: Normocephalic atraumatic Eyes PERRL and EOMs intact bilaterally Neck supple Neck Narrative: No bony deformity or step-off of the cervical spine no midline pain with palpation Resp normal respiratory effort and clear to auscultation bilaterally Cardio regular rate and regular rhythm Extremity Extremity Narrative: Left lower extremity is neurovascularly intact. There is a joint effusion present to the anterior medial aspect of the left knee. There is no obvious bony deformity noted. The patellar tendon is intact. Appear to be laxity with Tremayne's test on the left compared to right indicating a partial ACL tear. Otherwise remainder of the exam is normal Neuro oriented x3 and CN's II-XII intact bilaterally Sensorium / Orientation: alert Psych mental status grossly normal Skin no rashes or lesions noted MDM MDM MDM Narrative Medical decision making narrative: The patient presented to the ER after mechanical fall. He reported a possible patella dislocation but by exam it is now in place. He did not strike his head or have loss of conscious so I felt no need for head CT or cardiac/syncope work-up. X-rays were obtained which showed the effusion but no signs of acute fracture or dislocation. Based on his h istory of falling in the mud while carrying a bag of feed and his immediate soft tissue swelling I do feel he has a ligamentous injury. I believe this is most likely is a grade 2 injury to his ACL and possibly MCL based on his physical exam. However as there is no obvious signs of dislocation or fracture the patient does not need emergent orthopedic evaluation. He will be given crutches and a knee immobilizer and placed on home pain medication. He will be referred to orthopedics for repeat evaluation but is otherwise safe for discharge. Radiography Diagnostic Testing: Clinical Impression(s) from Imaging Studies Knee X-Ray 01/25/22 01:00 IMPRESSION: Small suspected suprapatellar joint effusion. Minimal narrowing of the medial knee joint compartment. Slightly irregular cortical margins of the distal femoral condyles on the lateral view, not obviously acute or due to osteochondritis dissecans. Electronically Signed: Dipti Cortez MD at 1:59 EDT , X-ray of the left knee as interpreted by the emergency medicine physician reveals a small to moderate joint effusion without acute fracture or dislocation Discharge Plan Triage Chief Complaint: Lower Extremity Injury ED Provider: Matty Amos Dx/Rx/DC Orders Clinical Impression: Left knee sprain, Effusion of knee joint, left Instructions: ED Knee Effusion, ED Knee Sprain Prescriptions: No Action escitalopram oxalate [Lexapro] 20 mg Tablet 20 mg PO DAILY RF: 0 Primary Care Provider: [facility] Referrals: Mani Vargas DO [STAFF PHYSICIAN] - 3-5 Days [facility] [Primary Care Provider] - Activity Restrictions/Additional Instructions: Please wear your knee immobilizer anytime you will be up and moving and use your crutches to help with weightbearing. Please follow-up with orthopedics to discuss need for MRI to further assess your stabilizing ligaments as I feel you have a partial tear to your ACL and MCL Disposition Disposition: Home, Self Care
[2022-01-25 02:24] VITALS: PULSE 86; RESP 15; O2SAT 98
== END 2022-01-25 02:27 | disposition home or self-care (01) ==
PROVIDERS: Emergency Provider Emergency Medicine; Visit Provider Emergency Medicine
DX: S83.92XA Sprain of unspecified site of left knee, initial encounter (principal); M25.462 Effusion, left knee; F17.210 Nicotine dependence, cigarettes, uncomplicated; Z79.899 Other long term (current) drug therapy; X50.1XXA Overexertion from prolonged static or awkward postures, initial encounter
CPT/HCPCS: 73562; 99284

== ENCOUNTER 2022-06-26 17:11 | Emergency (ER) | payer OTHER, SELFPAY ==
[2022-06-26 17:12] VITALS: BP 119/94; PULSE 90; RESP 16; TEMP 36.8; O2SAT 97; BMI 22.3
--- NOTE | 2022-06-26 17:47 | ED.VIS.GI ---
HPI <DWAYNE Chris - Last Filed: 06/26/22 20:21> HPI - GI History of Present Illness Chief Complaint: Abd Pain Narrative Narrative: Patient presents with left upper quadrant abdominal pain and nausea that started 3 days ago. Patient states the pain is intermittent and radiates into his left shoulder, left upper back, and the left side of his neck. Patient states that his pain is worsened by eating. Patient denies fever, chest pain, dysuria, vomiting, diarrhea, constipation, prior abdominal surgeries, prior history of cardiac disease, prior history of kidney stones, and a family history of cardiac disease. Patient denies any regular NSAID use but admits to drinking 6 beers a day. He states his diet recently has consisted of pizza, chili, and lasagna which have all worsened his symptoms. PFSH <DWAYNE Chris - Last Filed: 06/26/22 20:21> [facility] Medical History Alcohol abuse Depression Seizure Seizures Smoker Home Medications omeprazole 40 mg capsule,delayed release 40 mg PO DAILY gastritis 4 weeks #28 caps 06/26/22 [Rx Last Taken Unknown] Allergy/AdvReac Type Severity Reaction Status Date / Time No Known Allergies Allergy Verified 06/26/22 17:12 Social History Smoking Status: Current every day smoker tobacco type: cigarettes ROS <DWAYNE Chris - Last Filed: 06/26/22 20:21> ROS ED Constitutional Constitutional ED: Denies chills, fever(s) or sweats ENT ENT ED: Denies rhinorrhea or sore throat Cardiovascular Cardiovascular: Denies chest pain or palpitations Respiratory/Chest Respiratory/Chest: Denies cough, dyspnea or dyspnea on exertion Gastrointestinal Gastrointestinal: Reports abdominal pain; Denies change in bowel habits, change in stool character, constipation, diarrhea, nausea or vomiting Genitourinary Genitourinary ED: Denies dysuria, hematuria or urinary frequency Musculoskeletal Musculoskeletal: Reports back pain and neck pain; Denies arthralgias or myalgias Integumentary Denies Abrasions or rash Neurologic Neurologic: Reports headache(s); Denies weakness EXAM <DWAYNE Chris - Last Filed: 06/26/22 20:21> Physical Exam Const Vital Signs: 06/26/22 17:12 Temperature 98.2 F Temperature Source Temporal Pulse Rate 90 Respiratory Rate 16 Blood Pressure 119/94 H Blood Pressure Mean 102 Pulse Ox 97 Oxygen Delivery Method Room Air Positive well nourished and well developed General Appearance ED: well developed HEENT Reports moist mucous membranes normocephalic and atraumatic Eyes PERRL and EOMs intact bilaterally Neck no lymphadenopathy and supple Resp normal respiratory effort and clear to auscultation bilaterally Effort and Inspection: Negative for respiratory distress or retractions Auscultation: Negative for rales, rhonchi, wheezes or diminished lung sounds Cardio regular rate, regular rhythm and no murmurs GI non-distended and no masses GI Narrative: Patient has mild tenderness to palpation of the left upper quadrant. Auscultation: normoactive bowel sounds Palpation: Negative for hepatomegaly, splenomegaly or rebound tenderness present Back/Spine no CVA tenderness Extremity full ROM General Extremety ED: Negative for edema General Extremity: Negative for edema Neuro moves all extremities, no sensory deficits noted and gait normal Sensorium / Orientation: alert, oriented to person, oriented to place and oriented to time Motor Exam: strength 5/5 throughout Psych mental status grossly normal and thought process normal Skin no wounds General Skin Exam: Negative for jaundice Lesions: no lesions Rashes: no rashes Trauma: Negative for abrasion <Dr. Trace Thurman DO - Last Filed: 06/26/22 19:35> Physical Exam Const Vital Signs: 06/26/22 17:12 Temperature 98.2 F Temperature Source Temporal Pulse Rate 90 Respiratory Rate 16 Blood Pressure 119/94 H Blood Pressure Mean 102 Pulse Ox 97 Oxygen Delivery Method Room Air MDM <DWAYNE Chris - Last Filed: 06/26/22 20:21> [facility] MDM Narrative Medical decision making narrative: Patient's symptoms are consistent with gastritis especially with the alcohol use, tobacco use, and his diet. He has been educated on foods to avoid as well as avoiding alcohol and tobacco use. CBC, CMP, and lipase all normal. He is stable and able to discharge home with a PPI and with PCP follow-up if symptoms do not dissipate. Lab Data Attestation: I reviewed the patient's lab results. Labs: Laboratory Results - last 24 hr 06/26/22 06/26/22 17:40 17:40 WBC 7.9 RBC 4.65 Hgb 14.8 Hct 43.5 MCV 93.5 MCH 31.8 MCHC 34.0 RDW Std Deviation 44.1 H RDW Coeff of [place] 12.7 Plt Count 215 MPV 10.6 Immature Gran % (Auto) 0.400 Neut % (Auto) 55.3 Lymph % (Auto) 24.1 [place] % (Auto) 12.6 H Eos % (Auto) 6.8 H Baso % (Auto) 0.8 Absolute Neuts (auto) 4.4 Absolute Lymphs (auto) 1.91 Nucleated RBC % 0 Sodium 142 Potassium 3.7 Chloride 107 Carbon Dioxide 29.0 Anion Gap 6 BUN 20 H Creatinine 1.06 Estim Creat Clear Calc 97.10 Est GFR (MDRD) Af Amer 102 Est GFR (MDRD) Non-Af 84 BUN/Creatinine Ratio 18.9 Glucose 97 Calcium 9.1 Total Bilirubin 0.40 AST 19 ALT 26 Alkaline Phosphatase 89 Total Protein 7.1 Albumin 3.6 Globulin 3.5 Albumin/Globulin Ratio 1.0 Lipase 145 Treatment and Re-Evaluation Narrative: This patient was seen with a PA/BONDING MACHINE TENDER Individually assessed they patient including history and physical. I have reviewed everything on the chart that is available and agree with the documentation provided by the PA/BONDING MACHINE TENDER including discussion about the assessment, treatment plan, discussion, and return precautions. Abdominal exam is benign. Patient tells me that he has had pizza, chili, lasagna over the last 2 to 3 days and his symptoms are worsening. He does admit to drinking a sixpack per day. CBC, CMP, lipase all normal. Patient was given a GI cocktail and he feels improved. Patient counseled on foods to avoid. He started on omeprazole. Patient discharged home in stable condition. Impression: 1. Epigastric pain 2. Nausea 3. Acute gastritis <Dr. Trace Thurman, DO - Last Filed: 06/26/22 19:35> [facility] MDM Narrative Medical decision making narrative: Patient's symptoms are consistent with gastritis especially with the alcohol use, tobacco use, and his diet. He has been educated on foods to avoid as well as avoiding alcohol and tobacco use. He is stable and able to discharge home with PCP follow-up if symptoms do not dissipate. Lab Data Labs: Laboratory Results - last 24 hr 06/26/22 06/26/22 17:40 17:40 WBC 7.9 RBC 4.65 Hgb 14.8 Hct 43.5 MCV 93.5 MCH 31.8 MCHC 34.0 RDW Std Deviation 44.1 H RDW Coeff of [place] 12.7 Plt Count 215 MPV 10.6 Immature Gran % (Auto) 0.400 Neut % (Auto) 55.3 Lymph % (Auto) 24.1 [place] % (Auto) 12.6 H Eos % (Auto) 6.8 H Baso % (Auto) 0.8 Absolute Neuts (auto) 4.4 Absolute Lymphs (auto) 1.91 Nucleated RBC % 0 Sodium 142 Potassium 3.7 Chloride 107 Carbon Dioxide 29.0 Anion Gap 6 BUN 20 H Creatinine 1.06 Estim Creat Clear Calc 97.10 Est GFR (MDRD) Af Amer 102 Est GFR (MDRD) Non-Af 84 BUN/Creatinine Ratio 18.9 Glucose 97 Calcium 9.1 Total Bilirubin 0.40 AST 19 ALT 26 Alkaline Phosphatase 89 Total Protein 7.1 Albumin 3.6 Globulin 3.5 Albumin/Globulin Ratio 1.0 Lipase 145 Treatment and Re-Evaluation Narrative: This patient was seen with a PA/BONDING MACHINE TENDER Individually assessed they patient including history and physical. I have reviewed everything on the chart that is available and agree with the documentation provided by the PA/BONDING MACHINE TENDER including discussion about the assessment, treatment plan, discussion, and return precautions. Abdominal exam is benign. Patient tells me that he has had pizza, chili, lasagna over the last 2 to 3 days and his symptoms are worsening. He does admit to drinking a sixpack today. CBC, CMP, lipase all normal. Patient was given a GI cocktail and he feels improved. Patient counseled on foods to avoid. He started on omeprazole. Patient discharged home in stable condition. Impression: 1. Epigastric pain 2. Nausea 3. Acute gastritis Discharge Plan Triage Chief Complaint: Abd Pain ED Midlevel Provider: Mayra Etienne ED Provider: Trace Thurman Dx/Rx/DC Orders Clinical Impression: Gastritis, Nausea, Acute epigastric pain Instructions: ED Gastritis (Adult) Prescriptions: New omeprazole 40 mg capsule,delayed release(DR/EC) 40 mg PO DAILY 28 Days Qty: 28 0RF Primary Care Provider: [facility] Referrals: [facility] [Primary Care Provider] - 1 Week if not improving Activity Restrictions/Additional Instructions: Avoid alcohol use, tobacco use, spicy foods, fried foods, greasy foods, acidic foods, and foods with sauce. Seek medical attention if symptoms worsen or if new symptoms develop. Disposition Disposition: Home, Self Care Discharge Date/Time: 06/26/22 19:26
[2022-06-26 17:54] LABS: Absolute Lymphocyte Count 1.91 X10^3/uL (0.83-4.51); Absolute Neutrophil Count 4.4 X10^3/uL (2.0-7.7); Basophil# 0.06 X10^3/uL; Basophil% 0.8 % (0-1); Eosinophil# 0.54 X10^3/uL; Eosinophils% 6.8 % (0-5); Hematocrit 43.5 % (40-54); Hemoglobin 14.8 g/dL (13.0-16.5); Lymphocyte # 1.91 X10^3/ul (0.83-4.51); Lymphocyte % 24.1 % (19-41); Mean Corpuscular Hgb 31.8 pg (27.0-32.0); Mean Corpuscular Volume 93.5 fL (80-94); Mean Platelet Vol. 10.6 fl (6.2-12.0); Monocyte% 12.6 % (0-10); NRBC Flagged by Analyzer 0 % (0-5); Neutrophil # 4.39 X10^3/uL (2.7-7.7); Neutrophil % 55.3 % (47-70); Platelet Count 215 K/mm3 (150-450); RBC Distribution Width CV 12.7 % (11.6-14.6); RBC Distribution Width SD 44.1 fl (35.1-43.9); Red Blood Count 4.65 M/mm3 (4.6-6.2); White Blood Count 7.9 K/mm3 (4.4-11.0)
[2022-06-26] MEDS: Mag Hydrox/Al Hydrox/Simeth 30 ML UDC PO (18:06)
[2022-06-26 18:08] LABS: AST(SGOT) 19 U/L (15-37); Alanine Aminotransfer ALT/SGPT 26 U/L (16-61); Albumin, Serum 3.6 g/dL (3.2-5.0); Alkaline Phosphatase 89 U/L (45-117); Anion Gap 6 (5-15); BUN 20 mg/dL (7-18); BUN/Creat Ratio 18.9 RATIO (10-20); Calcium,Total 9.1 mg/dL (8.5-10.1); Chloride 107 mmol/L (98-107); Creatinine, Serum 1.06 mg/dL (0.70-1.30); EST Glomerular Filtration Rate 84 mL/min (>60); Est Glom Filt Rate - Afr Amer 102 mL/min (>60); Globulin 3.5 g/dL (2.2-4.2); Glucose 97 mg/dL (74-106); Lipase 145 U/L (73-393); Potassium 3.7 mmol/L (3.5-5.1); Protein, Total 7.1 g/dL (6.4-8.2); Sodium Level 142 mmol/L (136-145)
== END 2022-06-26 19:26 | disposition home or self-care (01) ==
PROVIDERS: Physician Assistant; Emergency Provider Student in an Organized Health Care Education/Training Program; Visit Provider Student in an Organized Health Care Education/Training Program
DX: K29.70 Gastritis, unspecified, without bleeding (principal); R11.0 Nausea; R10.13 Epigastric pain; F17.210 Nicotine dependence, cigarettes, uncomplicated
CPT/HCPCS: 80053; 83690; 85025; 99282

== ENCOUNTER 2022-09-13 10:04 | Emergency (ER) | payer OTHER, SELFPAY ==
[2022-09-13 10:06] VITALS: BP 155/112; PULSE 113; RESP 20; TEMP 36.8; O2SAT 98; BMI 22.4
--- NOTE | 2022-09-13 10:25 | EDS_ITS ---
HPI HPI - Psych History of Present Illness Chief Complaint: Mental Health Informant: patient Narrative Narrative: Patient brought in by police for mental health evaluation. Patient admits to history of depression. He been on Lexapro until 8 months ago when he stopped the medication. He does have a refill at home and he can restart. He does report increased stress at home. He is and has 6 children living in his home. 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 He states that last night after work he drank several beers. He has not been drinking recently. He woke up this morning in a bad mood. His stepdaughter apparently made some statements that upset him. He then began arguing with his who called the police. Patient admits that he said some things he should not have and does admit to making statements that he was going to hurt himself. He has abrasions to his right hand and admits to punching the bathroom wall this morning. Patient states he is never attempted to hurt himself and does not think he would ever actually act on this. PFSH PFSH Medical History Alcohol abuse Depression Seizure Seizures Smoker Allergy/AdvReac Type Severity Reaction Status Date / Time No Known Allergies Allergy Verified 06/26/22 17:12 Social History Smoking Status: Current every day smoker tobacco type: cigarettes ROS ROS ED Constitutional Constitutional ED: Denies chills or fever(s) Eyes Eyes: Denies change in vision or discharge from eye(s) ENT ENT ED: Denies discharge from eye(s), rhinorrhea or sore throat Cardiovascular Cardiovascular: Denies chest pain or palpitations Respiratory/Chest Respiratory/Chest: Denies cough or dyspnea Gastrointestinal Gastrointestinal: Denies abdominal pain, diarrhea, nausea or vomiting Genitourinary Genitourinary ED: Denies difficulty urinating or dysuria Musculoskeletal Musculoskeletal: Denies back pain or extremity pain Integumentary Denies Abrasions or rash Neurologic Neurologic: Denies headache(s) or weakness Psychiatric Psychiatric: Reports depression and suicidal thoughts Endocrine Endocrinology: Denies polydipsia or polyuria Allergic/Immunologic Allergic/Immunologic ED: Denies lip swelling or urticaria EXAM Physical Exam Const Vital Signs: 09/13/22 10:06 09/13/22 14:37 Temperature 98.2 F Temperature Source Temporal Pulse Rate 113 H 84 Respiratory Rate 20 H 14 Blood Pressure 155/112 H 116/79 Blood Pressure Mean 126 91 Pulse Ox 98 98 Oxygen Delivery Method Room Air Room Air Positive well nourished and well developed General Appearance ED: well developed HEENT Reports normocephalic and head/scalp atraumatic Eyes PERRL and EOMs intact bilaterally Neck supple Chest Wall inspection of chest normal and palpation of chest normal Resp normal respiratory effort and clear to auscultation bilaterally Cardio regular rate and regular rhythm GI normal to inspection, nondistended, normoactive bowel sounds Palpation: soft Back/Spine no CVA tenderness Extremity normal to inspection Neuro oriented x3 and no sensory deficits noted Sensorium / Orientation: alert Motor Exam: strength 5/5 throughout Psych mental status grossly normal, cooperative, affect normal and speech normal Appearance: grossly normal Activity / Motor Behavior: appropriate eye contact Speech: normal speech Mood & Affect: anxious Thought Process: normal thought process Attention / Concentration: attention grossly intact Memory / Cognition: memory grossly intact Skin no rashes or lesions noted MDM MDM MDM Narrative Medical decision making narrative: Lab work for psychiatric clearance was obtained. Patient seen and evaluated by social work. Lab Data Attestation: I reviewed the patient's lab results. Labs: Laboratory Results - last 24 hr 09/13/22 09/13/22 09/13/22 10:55 10:55 10:55 WBC 5.5 RBC 5.05 Hgb 16.0 Hct 46.2 MCV 91.5 MCH 31.7 MCHC 34.6 RDW Std Deviation 42.0 RDW Coeff of Chandler 12.7 Plt Count 237 MPV 10.2 Immature Gran % (Auto) 0.200 Neut % (Auto) 42.3 L Lymph % (Auto) 33.2 [place] % (Auto) 18.0 H Eos % (Auto) 5.8 H Baso % (Auto) 0.5 Absolute Neuts (auto) 2.3 Absolute Lymphs (auto) 1.82 Nucleated RBC % 0 Sodium 142 Potassium 3.8 Chloride 109 H Carbon Dioxide 28.0 Anion Gap 5 BUN 7 Creatinine 0.99 Estim Creat Clear Calc 104.73 Est GFR (MDRD) Af Amer 111 Est GFR (MDRD) Non-Af 91 BUN/Creatinine Ratio 7.1 L Glucose 113 H Calcium 9.3 Urine Opiates Screen Urine Methadone Screen Ur Barbiturates Screen Ur Phencyclidine Scrn Ur Amphetamines Screen MDMA (Ecstasy) Screen U Benzodiazepines Scrn Urine Cocaine Screen U Cannabinoids Screen Ur Drug Screen Comment Ethyl Alcohol 156.0 09/13/22 11:00 WBC RBC Hgb Hct MCV MCH MCHC RDW Std Deviation RDW Coeff of Chandler Plt Count MPV Immature Gran % (Auto) Neut % (Auto) Lymph % (Auto) [place] % (Auto) Eos % (Auto) Baso % (Auto) Absolute Neuts (auto) Absolute Lymphs (auto) Nucleated RBC % Sodium Potassium Chloride Carbon Dioxide Anion Gap BUN Creatinine Estim Creat Clear Calc Est GFR (MDRD) Af Amer Est GFR (MDRD) Non-Af BUN/Creatinine Ratio Glucose Calcium Urine Opiates Screen NEGATIVE Urine Methadone Screen NEGATIVE Ur Barbiturates Screen NEGATIVE Ur Phencyclidine Scrn NEGATIVE Ur Amphetamines Screen NEGATIVE MDMA (Ecstasy) Screen NEGATIVE U Benzodiazepines Scrn NEGATIVE Urine Cocaine Screen NEGATIVE U Cannabinoids Screen NEGATIVE Ur Drug Screen Comment Ethyl Alcohol Treatment and Re-Evaluation Narrative: CBC and chemistry studies unremarkable. Alcohol level is 156. Urine tox screen is negative. COVID test is negative. Social work evaluate the patient. She has significant concerns about the patient and does feel he warrants inpatient treatment being that he has access to guns and made threats to shoot himself. [facility] They have reported back that they have no beds available. Social work will start working on other placement options. Patient will be signed out to oncoming physician for further monitoring. Discharge Plan Triage Chief Complaint: Mental Health ED Provider: eHnna Herrera Dx/Rx/DC Orders Clinical Impression: Suicidal ideation Primary Care Provider: [facility] Referrals: Hospital[facility] [Primary Care Provider] - Disposition Disposition: Psychiatric Hospital or Unit
[2022-09-13 11:06] LABS: Absolute Lymphocyte Count 1.82 X10^3/uL (0.83-4.51); Absolute Neutrophil Count 2.3 X10^3/uL (2.0-7.7); Basophil# 0.03 X10^3/uL; Basophil% 0.5 % (0-1); Eosinophil# 0.32 X10^3/uL; Eosinophils% 5.8 % (0-5); Hematocrit 46.2 % (40-54); Lymphocyte # 1.82 X10^3/ul (0.83-4.51); Lymphocyte % 33.2 % (19-41); Mean Corp Hgb Conc 34.6 g/dL (32-36); Mean Corpuscular Hgb 31.7 pg (27.0-32.0); Mean Corpuscular Volume 91.5 fL (80-94); Mean Platelet Vol. 10.2 fl (6.2-12.0); Monocyte# 0.99 X10^3/uL; NRBC Flagged by Analyzer 0 % (0-5); Neutrophil # 2.32 X10^3/uL (2.7-7.7); Neutrophil % 42.3 % (47-70); Platelet Count 237 K/mm3 (150-450); RBC Distribution Width CV 12.7 % (11.6-14.6); Red Blood Count 5.05 M/mm3 (4.6-6.2); White Blood Count 5.5 K/mm3 (4.4-11.0)
[2022-09-13 11:21] LABS: Anion Gap 5 (5-15); BUN 7 mg/dL (7-18); BUN/Creat Ratio 7.1 RATIO (10-20); Calcium,Total 9.3 mg/dL (8.5-10.1); Chloride 109 mmol/L (98-107); Creatinine, Serum 0.99 mg/dL (0.70-1.30); EST Glomerular Filtration Rate 91 mL/min (>60); Est Glom Filt Rate - Afr Amer 111 mL/min (>60); Estimated Creatinine Clearance 104.73 ml/min; Glucose 113 mg/dL (74-106); Potassium 3.8 mmol/L (3.5-5.1); Sodium Level 142 mmol/L (136-145)
[2022-09-13 11:29] LABS: Amphetamine Urine VISTA NEGATIVE (<1000 ng/mL); Barbiturate Urine VISTA NEGATIVE (< 200 ng/mL); Benzodiazepine Urine VISTA NEGATIVE (< 200 ng/mL); Cocaine Urine VISTA NEGATIVE (< 300 ng/mL); Ecstacy Urine VISTA NEGATIVE (< 500 ng/mL); Methadone Urine VISTA NEGATIVE (< 300 ng/mL); PCP Urine VISTA NEGATIVE (< 25 ng/mL); THC Urine VISTA NEGATIVE (< 50 ng/mL); Vista UDS pH Range 6
--- NOTE | 2022-09-13 11:49 | CM.ED ---
? Social Work Psychiatric Assessment Reason for consult: Mental Health Informant(s): Patient and [facility] Kristine Chief Complaint: Per [facility] Officer Kristine ?Mr. Blanco threatened to shot(sic) himself in the head today while arguing with his . Mr. Blanco is not taking his medication and has been drinking. He also has previous attempts and has been hospitalized, previously suffer from PTSD?. Patient reports that he ?woke up in a bad mood... I had some drinks last night... I have PTSD and mental health issues?. 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 SW asked what a ?mental breakdown? was, and patient said ?So, I am with kids and my is 9 years younger and we have mental differences?. Patient stated, ?I said something to her 7-year-old daughter and my got on me?. Patient said that he told his ?s daughter to clean the living room and stated ?if this mess is not cleaned up, I am going to burn it which patient said was ?overboard? as generally they say they will throw things away. Patient said that the argument went ?from 0-100 in seconds? and ?I went off the deep end?. Patient said that he has been [facility] with [facility] the [facility]. SW asked patient if he wanted to and patient said ?not... but what is my purpose? and stated, ?I said I would put a bullet in my head if they treated me like this?. Patient reports he has access to guns. Marital/Social History: Marital Status:? . Identified Gender: Male. Sexual Orientation: Heterosexual Living Situation: Patient resides in house with his and 5 other kids. Patient?s older daughter resides with her mom 2 houses away from patient and his . Support/Resources: Patient reports that his mom, is a support ?but we had a falling out recently due to my mental breakdown?. Patient said that he has a friend in [place], who was in the [employer] with him also and is a support. 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 Patient saw combat in [place]. Patient said that he receives services for mental health at the [facility] with Alexandro, the social studies teacher, being his provider. Patient had honorable discharge. Education and Employment History: Patient graduated from [employer]. Patient went to [employer] and did get the certificates but did not graduate. Patient enlisted in the . Upon his discharge from the patient went to [employer] for 2 years for premed and did not complete the program. 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 Patient has been at his current job since 07/2022. Patient said that previously he did the same job at [employer] and was there for 6 years. Patient said that he also worked in [employer] at a [employer] in [place] for 5 ? years. 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 Patient said that he has some ?big jobs?. Patient said that he has experienced lack of sleep lately. Mental Health Treatment/History: Patient receives mental health services from the [facility]. Patient?s social studies teacher at [facility] is Alexandro. Patient said that he previously was taking Lexapro and it worked well but he felt good and ?happy?, so he discontinued Lexapro for 8 months. Patient was prescribed 20 mg of Lexapro by the [place]. Patient said that previously he was prescribed Prozac but that made him ?crazier?. Patient had one previous psych hospitalization at [facility]. Triggers/Stressors: Patient said that his stressors are ?I do so much good and don?t get anything in return and no one appreciates or respects me?. Patient said, ?nobody care that I do so much?. Patient reports that the primary stressors are relationships. Patient reports that his is 9 years younger than him, and he does not feel appreciated, and she does not understand because ?she is not mentally able to understand and when I express my feelings and talk it becomes an argument?. Coping Skills: Patient said that his work is hi way of coping. Patient said that he enjoys ?turning something into something else?. 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 Abuse Issues: ?Patient denied emotional, physical or sexual abuse. Patient said that his dad was not present in his life growing up and his relationship with his father is ?weird?. Patient?s father resides in [place]. Substance Abuse Hx:? Patient reports ?I am an alcoholic I guess?. Patient said that he had quit drinking but drank last night. Patient said that he had 3 twisted teas last night. Patient said that he was drunk and is ?feeling it? this morning. Patient said that in the past month he has had 24 beers. Patient said that he does not get drunk every time he drinks. Patient said that previously he went through a [facility] program, 4 [facility] ago, for alcohol use as he was drinking 12 beers a day. Patient said that the VA program was an IOP program at [place]. Risk to Self/Others: ? Suicidal:? Patient currently denied any thoughts regarding suicide and said ?I don?t really have thought... ?and stated that his thoughts were in regard to him not being treated with respect and how he was treated by his 7-year-old stepdaughter and this morning. Patient denied plans. Patient denied suicide attempt initially however later patient said that he had been hospitalized at [place] for ?jumping out of a car? and was hospitalized for 1 week. Patient said that he was suicidal at that time but was also drinking. SW feels that patient is currently minimizing statements made this morning as per pink slip patient threatened to shoot himself in the head when arguing with his and patient has access to gun and has had previous suicide attempt. Comments: ? Homicidal:? Denied Comments: ? Violence:? Patient denied violence to self. Patient said that his stepfather and him got into an argument and his stepfather took a gun on him related to his stepfather?s issues so he ?took the gun?. Patient reports that he was charged with assault and facing custodial time so ?I took the plea deal?. Patient said that he had an anger assessment form the [facility] and did not need anger management. Patient is not on probation. Patient had to pay court costs. ?Patient aid that this morning he punched a hole in the wall. Mental Status Exam: ??? Orientation:? x4 ??? Memory:? Good Appearance/General Behavior:? Clean and appropriate. Wearing hospital gown as he is on suicidal precautions. Mood/Affect: Tearful, Flat Affect, Depressed Mood Communication Pattern:? Patient responds to questions. Patient gave verbal consent for this narrative writer to speak to him in the presence of the [facility] who was getting patient?s bloodwork completed. Thought Process:? appropriate. Patient said that from the loud noises and explosives he heard ?I am always looking over my shoulder? and on guard. Patient denied hearing voices or seeing things not present to other individuals. General Intellectual Functioning:?? Above average ? Judgment: Impaired Insight:? Fair consulted with MD Herrera. Due to patient?s past SI attempt, reporting by police that patient threatened to shoot himself, access to guns, history of PTS and alcohol use and self-reported ?alcoholism? patient needs inpatient psych hospitalization for crisis stabilization and med management. MD Herrera agreed. TERRENCE spoke to KEYUR RN Issac at [facility], and he agreed that patient needs inpatient psych. Patient?s last appointment at [facility] was 08/29/22 with KEYUR Mc social studies teacher. Issac said that patient and his argue ?quite a bit? and ?she sets him off?. Plan: Inpatient Psych Chandrika AGUIRRE
--- NOTE | 2022-09-13 11:55 | CM.ED ---
tnt powder worker called the [place] transfer line and spoke to Retay about patient needing inpatient psych. Retay said to fax the clinicals to [phone]. SW spoke to Issac at [facility]. See original psych evaluation. Per Registration Nancie patient has [facility] and [place]. Chandrika AGUIRRE
--- NOTE | 2022-09-13 14:15 | CM.ED ---
TERRENCE received call from [facility] nurse, Issac at [phone] x [phone] and he advised that the patient getting transferred to [facility] needs to be between [facility] and [facility] as there is nothing the [facility] in [place] needs to do. TERRENCE went and attempted to update patient however, he was asleep. Chandrika AGUIRRE
[2022-09-13 14:37] VITALS: BP 116/79; PULSE 84; RESP 14; O2SAT 98
--- NOTE | 2022-09-13 15:10 | CM.ED ---
patient care directorJAZMINE Manriquez said that the VA needs the clinical information faxed to another building at the [facility]. Mitra will have staff fax the information to the VA at [facility] in [place]. SW was advised that patient wanted to speak to this comic book writer. TERRENCE updated patient that we are working on him going to the [facility]. Patient asked if he could drive himself and he was advised no. Patient said well, get working on me going to the VA. SW assured patient that we are working on getting him to the [facility]. SW was advised patient wanted to speak to community mental health social worker again. Patient inquired if he could be released to his mother's custody. TERRENCE said no. Per full charge bookkeeperJAZMINE Manriquez the patient's mother had called and inquired if she could have the patient discharged into her care and JAZMINE Manriquez said no. TERRENCE called [facility] and spoke to Shreya. They are familiar with patient but only collect the information and the casemanager reviews the information and presents it to the psychiatrist. So she is unsure where the patient is in the process. TERRENCE called Psych Obs and requested an update. SW was transferred to [facility]. TERRENCE left voice mail message for [facility] inquiring on the status of the patient. Chandrika AGUIRRE
--- NOTE | 2022-09-13 15:40 | CM.ED ---
TERRENCE Note TERRENCE spoke to Clinching Machine Operator who advised the VA was on the line and stated they had no beds. TERRENCE received message from Mitra LUCERO stated that she spoke to the [facility] and they have no psych beds and to try placement elsewhere. TERRENCE called [facility]. They have no beds. TERRENCE called [facility]. They have beds. TERRENCE faxed a referral to [facility]. TERRENCE called [facility]. They have beds. TERRENCE faxed a referral to [facility]. TERRENCE spoke to patient and updated him regarding the VA has no beds. Patient said I just want to go to a place where they care and it is not all about the money and he said that you guys sent his grandfather to [facility] and he was scared for his life and thus does not want to go to [facility]. Chandrika AGUIRRE
--- NOTE | 2022-09-13 18:42 | ED.RN ---
AT 1700 HS CALLED BACK TO ED, REPORTS THAT THEY NEED LAB WORK AND UPDATED VS FAXED TO THEIR FAX NUMBER. INFORMATION FAXED PER ALIX SANCHEZ STORES ASSISTANT.
--- NOTE | 2022-09-13 18:46 | CM.ED ---
TERRENCE Received call from Nico at [facility]. Nico said that they think they can take him. They just need the pink slip. Nico said that the pink slip can have both [facility] and [facility] on it but it has to have initials that it was changed. TERRENCE did the pink slip as directed and it was faxed to [facility]. Nico from [facility] called and inquired about seizure reference in the chart. TERRENCE spoke to art therapy certified supervisor who said that patient is not on any medication. TERRENCE spoke to patient and he reports that he had one seizure last year when his fever spiked to 105 degrees. TERRENCE updated Nico at [facility] about patient's report regarding the fever seizure and Nico said that should be fine. Patient accepted at [facility]. Accepting MD is Tony. [address]. Rn to RN is [phone]. Transport set after RN to RN received. TERRENCE updated Humaira, patient's nurse that patient was accepted. TERRENCE completed the transfer sheet. TERRENCE left voice mail for [place] that placement has been secured for patient. TERRENCE updated patient. TERRENCE provided him with brochure for [facility] with phone number and address. Chandrika AGUIRRE
[2022-09-13 18:52] VITALS: BP 118/80; PULSE 80; RESP 15; TEMP 36.9; O2SAT 99
--- NOTE | 2022-09-13 19:28 | NURSING ---
SENT UP TRANSPORT TO [facility]- WITH PHYSICIANS- ETA OF 6-8 HRS - BETWEEN [id number].
--- NOTE | 2022-09-13 20:14 | CM.ED ---
Of note, when TERRENCE was talking about the seriousness of patient's statement he said it's not like I had the gun up unto my head. Chandrika AGUIRRE
--- NOTE | 2022-09-13 20:56 | CM.ED ---
Patient asked to speak to psychosocial rehabilitation counselor again. During the day patient has asked repeated questions about if he can be released to his mother, if he can drive to psych facility, if the insurance will pay for his ambulance transport (patient has [facility] and patient said that he did not know he had [facility] my must have set that up). Patient asked for his wallet in his pants, patient asked for his phone, patient asked for a pillow (which was not provided to him but instead a blanket was provided to him). Patient's questions were all answered by this check writer salesperson. Chandrika AGUIRRE
[2022-09-13 23:23] VITALS: O2SAT 98
== END 2022-09-14 02:14 ==
PROVIDERS: Emergency Provider Emergency Medicine; Visit Provider Emergency Medicine
DX: R45.851 Suicidal ideations (principal); F17.210 Nicotine dependence, cigarettes, uncomplicated
CPT/HCPCS: 36415; 80048; 80307; 82077; 85025; 87811; 99285

== ENCOUNTER 2022-10-29 01:03 | Emergency (ER) | payer OTHER, SELFPAY ==
[2022-10-29 01:04] VITALS: BP 124/82; PULSE 102; RESP 20; TEMP 36.4; O2SAT 94; BMI 22.4
[2022-10-29] MEDS: 0.9% Normal Saline 1,000 ML 999 ML IV (03:02)
[2022-10-29] MEDS: Ondansetron 4 MG/2 ML Vial IV (03:02)
[2022-10-29] MEDS: Famotidine 200 MG/20 ML MDV 20 MG in 0.9% Normal Saline (Pres. free 8 ML 300 MG IV (03:11)
[2022-10-29 03:19] LABS: Absolute Lymphocyte Count 1.45 X10^3/uL (0.83-4.51); Absolute Neutrophil Count 3.6 X10^3/uL (2.0-7.7); Basophil# 0.03 X10^3/uL; Basophil% 0.5 % (0-1); Eosinophil# 0.13 X10^3/uL; Eosinophils% 2.2 % (0-5); Hematocrit 43.6 % (40-54); Hemoglobin 14.6 g/dL (13.0-16.5); Lymphocyte # 1.45 X10^3/ul (0.83-4.51); Lymphocyte % 24.6 % (19-41); Mean Corp Hgb Conc 33.5 g/dL (32-36); Mean Corpuscular Hgb 31.7 pg (27.0-32.0); Mean Corpuscular Volume 94.6 fL (80-94); Mean Platelet Vol. 10.5 fl (6.2-12.0); Monocyte# 0.66 X10^3/uL; Monocyte% 11.2 % (0-10); NRBC Flagged by Analyzer 0 % (0-5); Neutrophil % 61.2 % (47-70); Platelet Count 209 K/mm3 (150-450); RBC Distribution Width CV 12.6 % (11.6-14.6); RBC Distribution Width SD 43.8 fl (35.1-43.9); Red Blood Count 4.61 M/mm3 (4.6-6.2); White Blood Count 5.9 K/mm3 (4.4-11.0)
[2022-10-29 03:40] LABS: Anion Gap 7 (5-15); BUN 11 mg/dL (7-18); BUN/Creat Ratio 11.3 RATIO (10-20); Calcium,Total 8.7 mg/dL (8.5-10.1); Chloride 102 mmol/L (98-107); Creatinine, Serum 0.97 mg/dL (0.70-1.30); EST Glomerular Filtration Rate 93 mL/min (>60); Est Glom Filt Rate - Afr Amer 113 mL/min (>60); Estimated Creatinine Clearance 106.29 ml/min; Glucose 139 mg/dL (74-106); Magnesium 2.2 mg/dL (1.6-2.6); Sodium Level 140 mmol/L (136-145)
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
[2022-10-29 04:57] LABS: Amphetamine Urine VISTA NEGATIVE (<1000 ng/mL); Barbiturate Urine VISTA NEGATIVE (< 200 ng/mL); Benzodiazepine Urine VISTA NEGATIVE (< 200 ng/mL); Cocaine Urine VISTA NEGATIVE (< 300 ng/mL); Ecstacy Urine VISTA NEGATIVE (< 500 ng/mL); Methadone Urine VISTA NEGATIVE (< 300 ng/mL); PCP Urine VISTA NEGATIVE (< 25 ng/mL); THC Urine VISTA POSITIVE (< 50 ng/mL); Vista UDS pH Range 7
[2022-10-29 05:10] VITALS: PULSE 105; RESP 18; O2SAT 97
[2022-10-29 05:30] VITALS: PULSE 77; RESP 15; O2SAT 98
== END 2022-10-29 06:59 | disposition home or self-care (01) ==
PROVIDERS: Emergency Provider Emergency Medicine; Visit Provider Emergency Medicine
DX: F10.129 Alcohol abuse with intoxication, unspecified (principal); R11.2 Nausea with vomiting, unspecified; F17.210 Nicotine dependence, cigarettes, uncomplicated
CPT/HCPCS: 80048; 80307; 82077; 83735; 85025; 96374; 99285; J7030; J2405; J3490

== ENCOUNTER 2022-11-30 23:50 | Emergency (ER) | payer OTHER, SELFPAY ==
[2022-11-30 23:51] VITALS: BP 161/90; PULSE 94; RESP 16; TEMP 36.5; O2SAT 100; BMI 22.5
--- NOTE | 2022-12-01 00:04 | RAD_ITS ---
EXAM: XR Hand Min 3 Views INDICATION: Male, 37 years old. Posttraumatic left hand pain TECHNIQUE: AP, lateral and oblique views COMPARISON: None FINDINGS: BONES: No acute fracture. No lytic or blastic lesion. JOINTS: Joints are in normal alignment. No periarticular degenerative or inflammatory change. SOFT TISSUES: No soft tissue abnormality. RAD/Hand Min 3 Views IMPRESSION: No acute abnormality of the left hand Electronically Signed: Sharan Bailon MD at 0:46 EDT ,
--- NOTE | 2022-12-01 00:05 | EX.ED.UPPERE ---
HPI History of Present Illness Chief Complaint: Upper Extremity Injury Narrative Narrative: Patient is a 37-year-old male with past medical history of depression and seizure disorder who is right-hand dominant. 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 He states he believes he may have hit the bone. However he was able with the bleeding controlled and he has not noticed any obvious infection so he was not concerned. This evening he was using a finishing nail when the nail went through his left thumb. He states he was able to remove the nail and once again get the bleeding controlled with pressure. He states that secondary to the 2 injuries to the left hand in the past week he is concerned that he may have caused bony injury or developed an infection and he is concerned that he may need his tetanus updated and with this he comes in for evaluation. PFSH PFSH Medical History Alcohol abuse Depression Seizure Seizures Smoker Home Medications cephalexin 500 mg capsule 500 mg PO TID 7 days #21 caps 12/01/22 [Rx Last Taken Unknown] Allergy/AdvReac Type Severity Reaction Status Date / Time No Known Allergies Allergy Verified 06/26/22 17:12 Social History Smoking Status: Current every day smoker tobacco type: cigarettes ROS ROS ED Constitutional Constitutional ED: Denies chills or fever(s) ENT ENT ED: Denies sore throat Cardiovascular Cardiovascular: Denies chest pain Respiratory/Chest Respiratory/Chest: Denies cough or dyspnea Gastrointestinal Gastrointestinal: Denies abdominal pain, diarrhea, nausea or vomiting Genitourinary Genitourinary ED: Denies dysuria Musculoskeletal Musculoskeletal: Reports other Details: Positive left hand pain ; Denies myalgias Integumentary Reports Abrasions; Denies rash Neurologic Neurologic: Denies headache(s), paresthesias or weakness Hematologic/Lymphatic Hematologic/Lymphatic: Denies easy bleeding or easy bruising EXAM Physical Exam Const Vital Signs: 11/30/22 23:51 Temperature 97.7 F L Temperature Source Oral Pulse Rate 94 Respiratory Rate 16 Blood Pressure 161/90 H Blood Pressure Mean 113 Pulse Ox 100 Oxygen Delivery Method Room Air Positive well nourished and well developed General Appearance ED: well developed Eyes PERRL and EOMs intact bilaterally Neck supple Resp normal respiratory effort and clear to auscultation bilaterally Cardio regular rate and regular rhythm Extremity Extremity Narrative: Left upper extremity is neurovascularly intact; AIN/PIN are intact and normal. Patient has mild soft tissue swelling with scab formation along the dorsal aspect of the left second digit at the PIP joint. This is consistent with his history of recent injury. No signs of secondary infection. Patient has a puncture wound extending from the dorsal aspect of the left first digit that extends through and out the volar aspect near the DIP joint. Minimal ooze of blood but no active bleeding. No surrounding erythema or warmth or lymphangitic streak. No obvious ligamentous or tendinous injury Remainder of the exam is normal Neuro oriented x3 and CN's II-XII intact bilaterally Sensorium / Orientation: alert Psych mental status grossly normal Skin no rashes or lesions noted Skin Narrative: Signs of injury to the left hand as documented above MDM MDM MDM Narrative Medical decision making narrative: Patient presented to the ER hypertensive but otherwise with stable vitals. He reported that he is right-hand dominant. There is signs of injury to the left hand 1 being roughly 5 to 7 days old along the dorsal aspect of the left second digit and a new injury along the dorsal aspect of the left first digit. He does not have signs of tendon injury or ligamentous injury or bony injury. However with concern for underlying bony involvement or retained foreign body an x-ray was obtained. X-ray revealed no acute findings. Because of the 2 puncture wounds to the left hand recently his tetanus status was updated. 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 However at this time he does not have signs of open fracture or retained foreign body ligamentous or tendon injury or signs of soft tissue infection such as cellulitis or abscess. Therefore he is otherwise safe for discharge. History & Record Review Discussion w/independent historian: Patient and Friend Radiography Diagnostic Testing: X-ray of the left hand as interpreted by the emergency medicine physician reveals no acute fracture dislocation or foreign body Discharge Plan Triage Chief Complaint: Upper Extremity Injury ED Provider: Matty Amos Dx/Rx/DC Orders Clinical Impression: Puncture wound of left hand without complication, History of depression Instructions: ED Puncture Wound (General) Prescriptions: New cephalexin 500 mg capsule 500 mg PO TID 7 Days Qty: 21 0RF Primary Care Provider: [facility] Referrals: [facility] [Primary Care Provider] - Activity Restrictions/Additional Instructions: Your x-ray shows no signs of retained foreign body or bony injury. By exam there is no obvious infection at this time but as you have increased risk of this from the puncture wounds and the fact you use your hands to make your living take the antibiotic as directed for infection prophylaxis and return to the ER should you have any further concerns. Disposition Disposition: Home, Self Care
[2022-12-01] MEDS: Diphth,Pertuss(Acell),Tet Vac 0.5 ML Vial IM (00:08)
[2022-12-01 00:31] VITALS: PULSE 88; RESP 16; O2SAT 98
== END 2022-12-01 00:32 | disposition home or self-care (01) ==
LOC: ED 12-01 00:31
PROVIDERS: Emergency Provider Emergency Medicine; Visit Provider Emergency Medicine
DX: S61.432A Puncture wound without foreign body of left hand, initial encounter (principal); F17.210 Nicotine dependence, cigarettes, uncomplicated; Z23 Encounter for immunization; X58.XXXA Exposure to other specified factors, initial encounter
CPT/HCPCS: 73130; 90471; 90715; 99282